=== PATIENT | female | born 1975 | race Caucasian/White ===

== ENCOUNTER 2020-02-26 13:37 | Inpatient (IN) ==
[2020-02-26] MEDS ORDERED: methylPREDNISolone 125 MG/2 ML VIAL IVP ONE (13:52)
[2020-02-26] MEDS ORDERED: Ipratropium/Albuterol Neb 3 ML IH ONE (13:52)
[2020-02-26 14:43] LABS: Basophils # 0.1 K/mcL (0.0-0.2); Basophils % 0.4 %; Eosinophils # 0.1 K/mcL (0.0-0.6); Eosinophils % 0.5 %; Hematocrit 39.9 % (35.3-44.9); Hemoglobin 10.2 g/dL (11.5-15.4); Immature Granulocytes % 0.5 % (0-4); Lymphocytes # 1.3 K/mcL (0.6-4.6); Lymphocytes % 9.7 %; Mean Corpuscular HGB Conc 25.6 g/dL (31.6-35.5); Mean Corpuscular Volume 78.1 fL (83.0-100.0); Mean Platelet Volume 9.1 fL (9.4-12.4); Monocytes # 0.5 K/mcL (0.0-1.3); Monocytes % 3.8 %; Neutrophils # 11.5 K/mcL (1.6-8.9); Nucleated Red Blood Cells 0.7 /100 WBC (0); Platelet Count 496 K/mcL (140-400); Red Blood Count 5.11 M/mcL (3.82-4.97); Red Cell Distribution Width 17.2 % (11.5-14.5); Segmented Neutrophils % 85.1 %; White Blood Count 13.5 K/mcL (4.3-11.1)
[2020-02-26 14:58] LABS: Alanine Aminotransferase 23 Units/L (7-52); Albumin 3.6 g/dL (3.5-5.7); Albumin/Globulin Ratio 1.2 (1.1-2.2); Alkaline Phosphatase 91 Units/L (34-104); Aspartate Amino Transferase 12 Units/L (13-39); BUN/Creatinine Ratio 24 (6-26); Bilirubin,Indirect 0.3 mg/dL (0.0-1.0); Bilirubin,Total 0.3 mg/dL (0.3-1.0); Blood Urea Nitrogen 16 mg/dL (6-20); Calcium 8.5 mg/dL (8.6-10.3); Carbon Dioxide 33 mEq/L (23-29); Chloride 106 mEq/L (98-107); Globulin 3.1 g/dL (2.4-3.5); Glucose 136 mg/dL (70-105); Osmolality,Calculated 299 (280-300); Potassium 4.6 mEq/L (3.5-5.1); Sodium 143 mEq/L (136-145); Total Protein 6.7 g/dL (6.4-8.9); Troponin I < 0.03 ng/mL (< 0.04); eGFR For African Americans > 60 (> 60); eGFR For Non-African Americans > 60 (> 60)
[2020-02-26] MEDS ORDERED: cefTRIAXone 1,000 MG in Water for inj. (sterile) 10 ML IVP ONE (15:14)
[2020-02-26] MEDS ORDERED: Azithromycin 500 MG in 0.9 % Sodium Chloride 250 ML IVPB ONE (15:14)
[2020-02-26 15:29] LABS: Platelet Estimate Increased (Normal)
[2020-02-26 15:30] LABS: Anisocytosis 1+ (Not Present)
[2020-02-26] MEDS ORDERED: Ondansetron ODT 4 MG TAB.RAPDIS SL PRN (15:37)
[2020-02-26] MEDS ORDERED: Naloxone 0.4 MG/ML INJ IVP PRN (15:37)
[2020-02-26] MEDS ORDERED: Albuterol 2.5 MG/3 ML NEBULIZER IH PRN (15:43)
[2020-02-26] MEDS ORDERED: 0.9 % Sodium Chloride 1,000 ML ONE (15:46)
[2020-02-26] MEDS: 0.9 % Sodium Chloride 1,000 ML IVC SCH ×2 (15:51→17:56)
[2020-02-26 15:53] LABS: Bilirubin,Urine Negative (Negative); Blood,Urine Moderate (Negative); Clarity,Urine Clear (Clear); Color,Urine Yellow (Yellow); Glucose,Urine (UA) Normal (Normal); Hyaline Casts,Urine Few per lpf (None Seen); Ketones,Urine Negative (Negative); Leukocyte Esterase,Urine Negative (Negative); Mucus,Urine Few per lpf (None-Few); Nitrite,Urine Negative (Negative); Protein,Urine 200 mg/dL (Neg-Trace); RBC,Urine 15-30 per hpf (0-3); Specific Gravity,Urine 1.027 (1.010-1.025); Squamous Epithelial Cell,Urine Few per hpf (None-Few); Urobilinogen,Urine Normal (Normal); WBC,Urine 0-3 per hpf (0-3)
[2020-02-26 16:41] LABS: Adenovirus Not Detected (Not Detect); Bordetella Pertussis Not Detected (Not Detect); Chlamydophila pneumoniae Not Detected (Not Detect); Coronavirus 229E Not Detected (Not Detect); Coronavirus HKU1 Not Detected (Not Detect); Coronavirus NL63 Not Detected (Not Detect); Coronavirus OC43 Not Detected (Not Detect); Human Metapneumovirus Not Detected (Not Detect); Human Rhinovirus/Enterovirus Not Detected (Not Detect); Influenza A Subtype 2009 H1 Not Detected (Not Detect); Influenza B Not Detected (Not Detect); Mycoplasma pneumoniae Not Detected (Not Detect); Parainfluenza Virus 1 Not Detected (Not Detect); Parainfluenza Virus 2 Not Detected (Not Detect); Parainfluenza Virus 3 Not Detected (Not Detect); Parainfluenza Virus 4 Not Detected (Not Detect); Respiratory Syncytial Virus Not Detected (Not Detect)
[2020-02-26] MEDS ORDERED: Isovue-370 500 ML BOTTLE IVP ONE (16:55)
[2020-02-26 17:46] LABS: ABG Base Excess 2 mEq/L (-2 to 3); ABG HCO3 36 mEq/L (21-27); ABG Oxygen Saturation 82 % (95-98); ABG PCO2 128 mmHg (35-45); ABG PH 7.06 pH Units (7.32-7.45); ABG PO2 70 mmHg (85-104); ABG TCO2 40 mEq/L (20-26)
[2020-02-26] MEDS ORDERED: *HR* Heparin 5,000 UNIT/ML VIAL SQ SCH (18:00)
[2020-02-26] MEDS: Ipratropium/Albuterol Neb 3 ML IH SCH ×2 (18:01→20:23)
[2020-02-26] MEDS ORDERED: D5% in Water 1,000 ML IVC PRN (18:13)
[2020-02-26] MEDS ORDERED: Dextrose Gel 15 GM/37.5 ML TUBE PO PRN ×2 (18:13)
[2020-02-26] MEDS ORDERED: *HR* Dextrose 50 % in Water (Vial) 50 ML VIAL IVP PRN (18:13)
[2020-02-26] MEDS ORDERED: methylPREDNISolone 125 MG/2 ML VIAL IVP SCH (18:15)
[2020-02-26 20:35] LABS: ABG PCO2 > 150 mmHg (35-45); ABG PO2 78 mmHg (85-104); Blood Gas Modality AVAPS; Blood Gas VT 500 cc
[2020-02-26] MEDS ORDERED: Furosemide 40 MG/4 ML VIAL IVP ONE (20:54)
[2020-02-26] MEDS ORDERED: Sodium Bicarbonate 50 MEQ/50 ML VIAL IVP ONE ×2 (20:54)
[2020-02-26 20:56] LABS: Amphetamine Screen,Urine Negative ng/mL (Cutoff=1000); Barbiturate Screen,Urine Negative ng/mL (Cutoff=200); Benzodiazepines Screen,Urine Negative ng/mL (Cutoff=200); Cannabinoid Screen,Urine Negative ng/mL (Cutoff = 50); Cocaine Screen,Urine Negative ng/mL (Cutoff= 300); Opiate Screen,Urine Negative ng/mL (Cutoff=300); Phencyclidine Screen,Urine Negative ng/mL (Cutoff=25)
[2020-02-26 21:25] LABS: Magnesium 2.3 mg/dL (1.6-2.6); Phosphorous 7.1 mg/dL (2.7-4.5)
[2020-02-26 21:37] LABS: BUN/Creatinine Ratio 19 (6-26); Blood Urea Nitrogen 17 mg/dL (6-20); Calcium 8.8 mg/dL (8.6-10.3); Carbon Dioxide 33 mEq/L (23-29); Chloride 106 mEq/L (98-107); Glucose 286 mg/dL (70-105); Osmolality,Calculated 302 (280-300); Potassium 6.9 mEq/L (3.5-5.1); Sodium 140 mEq/L (136-145); eGFR For African Americans > 60 (> 60); eGFR For Non-African Americans > 60 (> 60)
[2020-02-26] MEDS ORDERED: Calcium Gluconate 1gm/50mL 1 GM/50 ML BAG IVPB ONE (21:38)
[2020-02-26] MEDS ORDERED: Insulin Regular, Human 100 UNIT/ML IV ONE (21:40)
[2020-02-26] MEDS ORDERED: *HR* Dextrose 50 % in Water (Vial) 50 ML VIAL IVP ONE (21:40)
[2020-02-26 21:41] LABS: VBG HCO3 31 mEq/L (21-27); VBG PCO2 123 mmHg (41-51); VBG PO2 140 mmHg (25-50)
[2020-02-26] MEDS ORDERED: Insulin LISPRO 300 UNITS/3 ML VIAL SQ ONE ×2 (22:00→23:45)
[2020-02-26] MEDS ORDERED: Albumin 25% 25gram/100mL 25 GM/100 ML IV.SOLN IVPB ONE (23:18)
[2020-02-27] MEDS ORDERED: Insulin LISPRO 300 UNITS/3 ML VIAL SQ SCH
[2020-02-27 00:12] LABS: Calcium 8.3 mg/dL (8.6-10.3); Potassium 6.4 mEq/L (3.5-5.1)
[2020-02-27] MEDS: Ipratropium/Albuterol Neb 3 ML IH SCH ×3 (00:26→07:24)
[2020-02-27] MEDS ORDERED: Insulin Human Regular 5 UNIT in 0.9 % Sodium Chloride 10 ML IV ONE (00:26)
[2020-02-27] MEDS ORDERED: D5% in 0.45% NACL 1,000 ML IVC SCH (00:30)
[2020-02-27 00:34] LABS: VBG PCO2 > 150 mmHg (41-51); VBG PH 6.79 pH Units (7.32-7.42); VBG PO2 232 mmHg (25-50)
[2020-02-27 00:50] LABS: Calcium 7.4 mg/dL (8.6-10.3); Potassium 4.6 mEq/L (3.5-5.1)
[2020-02-27] MEDS ORDERED: Sodium Bicarbonate 75 MEQ in D5% in Water 1,000 ML IVC SCH (01:15)
[2020-02-27] MEDS ORDERED: 0.9 % Sodium Chloride 1,000 ML ONE (02:03)
[2020-02-27 02:40] LABS: Potassium,Urine 45.7 mEq/L; Protein/Creatinine Ratio,Urine 3.4 mg/mg (0.00-0.20); Sodium, Urine 48.4 mEq/L
[2020-02-27] MEDS ORDERED: *HR* Atropine Sulfate 1 MG/10 ML SYRINGE IV ONE (08:57)
[2020-02-27] MEDS ORDERED: predniSONE 20 MG TABLET PO SCH (09:00)
[2020-02-27] MEDS ORDERED: cefTRIAXone 1,000 MG in Water for inj. (sterile) 10 ML IVP SCH (09:00)
[2020-02-27] MEDS ORDERED: Azithromycin 500 MG in 0.9 % Sodium Chloride 250 ML IVPB SCH (09:00)
== END 2020-02-27 08:58 | disposition expired | DRG 720 ==
LOC: EMEROOARM 13:37 → 2ANU 13:37 → 2NNU 17:44 → SUATTDRO 18:18 → 2NNU 19:07
PROVIDERS: ADMIT Family Medicine; ATTEND Family Medicine